=== PATIENT | male | born 2000 | race Caucasian/White ===

== ENCOUNTER → 2019-02-11 | Outpatient (REF) | payer OTHER | LOC: M LAB REF 13:19 | PROVIDERS: ATTEND Family Medicine | DX: J02.0 Streptococcal pharyngitis (principal) ==

== ENCOUNTER → 2019-03-02 | Outpatient (REF) | payer OTHER | LOC: M LAB REF 13:12 | PROVIDERS: ATTEND Physician Assistant | DX: J35.1 Hypertrophy of tonsils (principal) ==

== ENCOUNTER → 2019-03-18 | Outpatient (REF) | payer OTHER | LOC: M LAB REF 12:41 | PROVIDERS: ATTEND Physician Assistant Medical | DX: J35.1 Hypertrophy of tonsils (principal) ==

== ENCOUNTER 2019-05-06 08:50 | Day surgery (SDC) | payer OTHER ==
[~2019-05-06] VITALS: Ht 188 cm; Wt 131.3 kg
[2019-05-06] MEDS ORDERED: dexameTHASONE 4 MG/ML 1ML VIAL (J1100) As Ordered ONE (09:24)
[2019-05-06] MEDS ORDERED: dexameTHASONE 4 MG/ML 1ML VIAL (J1100) IV ONE (09:30)
[2019-05-06] MEDS ORDERED: LR 1,000 ML IV ONE (09:30)
[2019-05-06] MEDS ORDERED: ROCURONIUM BROMIDE 50 MG/5 ML VIAL As Ordered ONE (10:35)
[2019-05-06] MEDS ORDERED: ONDANSETRON 4MG/2ML VIAL (J2405) As Ordered ONE (10:35)
[2019-05-06] MEDS ORDERED: LIDOCAINE 2% INJ 100 MG/5 ML SDV (FOR ANES.) As Ordered ONE (10:35)
[2019-05-06] MEDS ORDERED: SUCCINYLCHOLINE 100 MG/5 ML SYRINGE (J0330) As Ordered ONE (10:35)
[2019-05-06] MEDS ORDERED: ACETAMINOPHEN 1000MG 100ML IV BTL (OFIRMEV) (J0131 PER 10MG) As Ordered ONE (10:35)
[2019-05-06] MEDS ORDERED: fentaNYL 100 MCG/2 ML INJECTION (J3010) As Ordered ONE ×2 (10:35→10:46)
[2019-05-06] MEDS ORDERED: MIDAZOLAM INJ 2 MG/2 ML VIAL (J2250) As Ordered ONE (10:35)
[2019-05-06] MEDS ORDERED: PROPOFOL 200 MG/20 ML VIAL As Ordered ONE ×2 (10:35→10:42)
[2019-05-06] MEDS ORDERED: OXYMETAZOLINE NASAL SPRAY (AFRIN) As Ordered ONE (10:46)
[2019-05-06] MEDS ORDERED: ESMOLOL INJ 100MG/10ML VIAL As Ordered ONE (10:55)
[2019-05-06] MEDS ORDERED: hydrALAZINE INJ 20 MG/ML VIAL As Ordered ONE (11:04)
[2019-05-06] MEDS ORDERED: PERCOCET 5MG/325MG TAB As Ordered ONE (11:44)
[2019-05-06] MEDS ORDERED: ONDANSETRON 4MG/2ML VIAL (J2405) IV PRN (11:45)
[2019-05-06] MEDS ORDERED: HYDROMORPHONE HCL 0.5 MG/ 0.5 ML SYRINGE (J1170 PER 1) IV PRN (11:45)
[2019-05-06] MEDS ORDERED: LR 1,000 ML IV SCH ×2 (11:45→12:46)
[2019-05-06] MEDS ORDERED: fentaNYL 100 MCG/2 ML INJECTION (J3010) IV PRN (11:45)
[2019-05-06] MEDS ORDERED: PERCOCET 5MG/325MG TAB PO PRN (11:45)
[2019-05-06 13:10] VITALS: BP 140/62
--- NOTE | 2019-05-11 14:53 | RO ---
DATE OF PROCEDURE: 05/06/2019 PREPROCEDURE DIAGNOSES: Chronic tonsillitis, tonsillar hypertrophy and possible adenoid hypertrophy. POSTPROCEDURE DIAGNOSES: Chronic tonsillitis, tonsillar hypertrophy and possible adenoid hypertrophy. INTRAOPERATIVE FINDINGS: Normal adenoid tissues. SURGEON: Amor Monique MD CHURCH MUSICIAN: ANESTHESIA: General. CLINICAL PREAMBLE: This 19-year-old man presented to the office with a history of tonsillitis. He also is having some issues with intermittent nasal congestion. Physical examination revealed hypertrophic tonsils with cryptic surface. Management options, including tonsillectomy with possible adenoidectomy have been discussed. He understood and consented to the procedure. DESCRIPTION OF PROCEDURE: Patient was identified in preoperative holding and brought to the operating room in stable condition. In supine position on the operating table, patient received general anesthesia followed by orotracheal intubation without incident. Patient was prepped and draped in the usual fashion for the procedure. The Tenisha-Madhav mouth gag was inserted and suspended. The red rubber catheter was inserted via the right naris to retract the soft palate. Using a mirror, the nasopharynx was inspected. The adenoid tissue appeared to be of normal size. As a result, decision was to proceed with tonsillectomy only. The right tonsil was medialized using curved Allis forceps. Mucosal incision was made over the superior pole of the right tonsil using the Coblator wand set at 7 for Coblation. The tonsillar capsule was identified, and dissection was carried out along this plane to excise the right tonsil. The left tonsil was then similarly dissected out. At the end of the procedure, both tonsil beds were free of bleeding. Estimated blood loss was less than 10 mL. No complication was encountered. Sponge and instruments counts were correct at the end of the procedure. General anesthesia was reversed, and patient was extubated and brought to the recovery room in stable condition.
== END 2019-05-06 13:20 | disposition home or self-care (01) ==
LOC: M SDC 08:50
PROVIDERS: ATTEND Otolaryngology
DX: J35.1 Hypertrophy of tonsils (principal); J45.909 Unspecified asthma, uncomplicated
CPT/HCPCS: 42826; 88302; J0131; J0330; J1100; J2250; J2405; J3010

== ENCOUNTER → 2024-04-20 | Outpatient (REF) | payer OTHER | LOC: M LAB REF 12:15 | PROVIDERS: ATTEND Physician Assistant | DX: B34.9 Viral infection, unspecified (principal) ==